=== PATIENT | male | born 1985 | race Caucasian/White ===

== ENCOUNTER 2019-01-27 15:33 | Emergency (ER) | payer MEDICARE ==
[2019-01-27] MEDS ORDERED: HYDROmorphone HCL 2 MG/ML SDV IVP ONE (17:05)
[2019-01-27] MEDS ORDERED: NS(*) 0.9% 1000 ML BAG 1,000 ML IV ONE (17:05)
[2019-01-27] MEDS ORDERED: ORPHENADRINE 60MG/2ML INJ IVP ONE (17:05)
--- NOTE | 2019-01-27 17:10 | ER Report ---
History and Physical Time Seen By MD: 17:05 Hx. of Stated Complaint: pain from back radiating into legs (SAY MÉNDEZ DO) HPI/ROS CHIEF COMPLAINT: low back pain radiating down b/l legs HISTORY OF PRESENT ILLNESS: Pt here for evaluation of low back pain radiating down b/l legs. Pt is from [place]. Pt had left hip replaced a month ago for avascular necrosis. PT is here visiting. Pt was panning for gold and noted a gradual onset of the radiating back pain, which he now rates as a constant 11/10. Denies trauma or any triggering event. Reports history of bulging discs noted on MRI 5 years ago. Denies loss of bowel or bladder incontinence. Reports nausea, vomiting and diarrhea for the last two days. Last episode of diarrhea was before being roomed in the emergency department. No abd pain. The surgical site on the left hip was healing well until a day ago when he noticed increased redness and serosanguineous discharge. REVIEW OF SYSTEMS: Constitutional: feels feverish with chills. Eyes: No discharge. ENT: No sore throat. Cardiovascular: No chest pain, no palpitations. Respiratory: No cough, no shortness of breath. Gastrointestinal: No abdominal pain, + nausea,vomiting and diarrhea Genitourinary: No hematuria. Musculoskeletal: as in HPI Skin: as in HPI Neurological: No headache. (SAY MÉNDEZ DO) Allergies: Coded Allergies: acyclovir (Verified Allergy, Intermediate, nguyen's palsy, 01/27/19) Home Meds Active Scripts Amoxicillin/Pot Clav 875-125 Mg Tab (AUGMENTIN 875-125 TABLET) 1 Each Tablet, 1 TAB PO Q12H for infection, #14 TAB Prov:RAIN LEE DO 01/27/19 Methocarbamol (ROBAXIN-750) 750 Mg Tablet, 1 TAB PO TID PRN for muscle spasm relief, #20 Prov:RAIN LEE DO 01/27/19 Oxycodone Hcl/Acetaminophen (PERCOCET 5-325 MG TABLET) 1 Each Tablet, 1 EACH PO Q4-6H PRN for PAIN, #15 Prov:RAIN LEE DO 01/27/19 Past Medical/Surgical History Pmhx: avascular necrosis b/l hips, bulging discs, anxiety, tachycardia Pshx: appy, left hip (SAY MÉNDEZ DO) Reviewed Nurses Notes: Yes Old Medical Records Reviewed: No (never been to [facility]) (SAY MÉNDEZ DO) Hx Alcohol Use: Yes (SAY MÉNDEZ DO) Constitutional Vital Sign - Last 24 Hours 01/27/19 01/27/19 01/27/19 01/27/19 16:24 16:30 16:34 17:00 Temp 98.5 Pulse 128 123 123 Resp 8 16 28 B/P (MAP) 141/97 (112) 141/97 153/99 (117) Pulse Ox 94 95 89 O2 Delivery Room Air 01/27/19 01/27/19 01/27/19 01/27/19 17:30 18:00 18:57 19:00 Pulse 125 117 116 Resp 19 20 28 B/P (MAP) 139/102 (114) 126/82 (97) 126/89 (101) 91/78 (82) Pulse Ox 89 95 94 01/27/19 01/27/19 01/27/19 01/27/19 20:00 20:30 20:56 21:00 Pulse ??? 121 119 B/P (MAP) 133/94 (107) 135/92 (106) 112/96 (101) Pulse Ox 91 91 Intake and Output 01/27/19 01/27/19 01/28/19 15:03 23:03 07:03 Intake Total 1000 ml Balance 1000 ml (RAIN LEE DO) Physical Exam General Appearance: The patient is alert, has no immediate need for airway protection and no signs of toxicity. Appears uncomfortable, moves slowly due to severe pain. Eyes: Pupils equal and round no pallor or injection. ENT, Mouth: Mucous membranes are moist. Respiratory: There are no retractions, lungs are clear to auscultation. Cardiovascular: Tachycardic with regular rhythm, no murmurs, clicks or rubs. Gastrointestinal: Abdomen is soft and non tender, no masses, bowel sounds normal. Neurological: Alert and oriented, sensation to light touch intact and muscle strength is symmetric in all extremities, DTRs +2/4 at patellar tendons b/l Skin: Approximately 5 cm surgical scar with 6 mm opening with serosanguineous discharge and surrounding erythema Musculoskeletal: tender to palpation down almost entire spine, worse in lumbar and flank regions. Noted ropiness or paraspinal muscles in lumbar region, left side> right. Decreased range of motion in spine and lower extremities b/l due to severe pain. DIFFERENTIAL DIAGNOSIS: After history and physical exam differential diagnosis was considered for lumbar radiculopathy secondary to disc herniation or muscle spasm,; spondylolysis, lumbar strain, cellulitis at surgical site, post op infection, gastroenteritis. (HONEY,SAY Martinez DO) Medical Decision Making Data Points Result Diagram: 01/27/19 1713 01/27/19 1713 Laboratory Hematology Test 01/27/19 17:13 White Blood Count 7.7 k/uL (4.5-11.0) Red Blood Count 4.78 M/uL (4.00-5.60) Hemoglobin 14.7 g/dL (14.0-18.0) Hematocrit 42.2 % (42.0-52.0) Mean Corpuscular Volume 88.2 fL (80.0-96.0) Mean Corpuscular Hemoglobin 30.8 pg (26.0-33.0) Mean Corpuscular Hemoglobin Concent 34.9 g/dL (32.0-36.0) Red Cell Distribution Width 13.3 % (11.5-14.5) Platelet Count 250 K/uL (150-450) Mean Platelet Volume 8.2 fL (7.2-11.1) Neutrophils (%) (Auto) 64.2 % (39.4-72.5) Lymphocytes (%) (Auto) 19.9 % (17.6-49.6) Monocytes (%) (Auto) 15.1 % (4.1-12.4) H Eosinophils (%) (Auto) 0.1 % (0.4-6.7) L Basophils (%) (Auto) 0.7 % (0.3-1.4) Nucleated RBC Relative Count (auto) 0.0 /100WBC Neutrophils # (Auto) 5.0 K/uL (2.0-7.4) Lymphocytes # (Auto) 1.5 K/uL (1.3-3.6) Monocytes # (Auto) 1.2 K/uL (0.3-1.0) H Eosinophils # (Auto) 0.0 K/uL (0.0-0.5) Basophils # (Auto) 0.1 K/uL (0.0-0.1) Nucleated RBC Absolute Count (auto) 0.00 K/uL Erythrocyte Sedimentation Rate 32 mm/HOUR (0-15) H Chemistry Test 01/27/19 17:13 01/27/19 18:11 Sodium Level 134 mmol/L (137-145) Potassium Level 3.9 mmol/L (3.5-5.0) Chloride Level 97 mmol/L (98-107) Carbon Dioxide Level 23 mmol/L (22-30) Blood Urea Nitrogen 13 mg/dl (9-21) Creatinine 1.10 mg/dl (0.66-1.25) Glomerular Filtration Rate Calc > 60.0 Random Glucose 107 mg/dl (75-110) Calcium Level 9.0 mg/dl (8.4-10.2) C-Reactive Protein 18.9 mg/dl (<1.0) Lactate 1.0 mmol/L (0.7-2.1) (RAIN LEE DO) Microbiology Microbiology Date/Time Source Procedure Growth Status 01/27/19 17:17 Blood Blood Culture - Preliminary NO GROWTH AFTER 1 DAY, REINCUBATED Resulted 01/27/19 17:13 Blood Blood Culture - Preliminary NO GROWTH AFTER 1 DAY, REINCUBATED Resulted 01/27/19 17:00 Hip Left Gram Stain - Final Resulted 01/27/19 17:00 Wound Culture - Preliminary Staphylococcus, Coagulase Pos Resulted (RAIN LEE DO) EKG/Imaging Imaging X-ray: Left hip 2 views was obtained. I viewed the images myself on the PACS system. My interpretation of the images is: No loosening of prosthetic parts., No subcutaneous air noted. The radiologist interpretation had no clinically significant variation from this interpretation. X-ray: L spine 3 views was obtained. I viewed the images myself on the PACS system. My interpretation of the images is: Normal-appearing lumbar spine without malalignment or degenerative disc disease. The radiologist interpreta tion had no clinically significant variation from this interpretation. Results: MRI of the lumbar spine without contrast was obtained. The results of the study are MRI lumbar spine without IV contrast HISTORY: Severe low back pain radiating down both legs, history of disc disease COMPARISON: None. TECHNIQUE: Multi-planar, multi-sequence lumbar spine MRI was performed without intravenous contrast administration. FINDINGS: Alignment: Normal. Vertebral marrow signal: Negative. Distal thoracic cord: Negative. Conus: negative, terminates at L1 Cauda equina: Negative. Paravertebral soft tissues: Negative. Visualized abdominal and pelvic structures: Negative. Disc Spaces: Lower thoracic spine: Normal. L1-2: Normal. L2-3: Normal. L3-4: Normal. L4-5: Minimal disc bulge without significant spinal canal or foraminal stenosis. L5-S1: Minimal disc bulge without spinal canal or foraminal stenosis. The right lateral recess is mildly narrowed. IMPRESSION: Minimal degenerative changes of the lower lumbar spine without evidence of neural compromise. The study was read by the radiologist. I viewed the images myself on the PACS system. (RAIN LEE DO) ED Course/Re-evaluation ED Course Checking basic labs and x-ray of hip Signed out to Dr. Lee (SAY MÉNDEZ DO) ED Course Care was accepted at shift change from Dr. Novoa. Patient with possible cellulitis of his incision on his left hip since he's been camping and panning for goal. He likely got the area wet. The wound appears to be dehisced in a 4- 5 mm central area of the incision of his lateral hip. Patient's evaluation for sepsis and infection is negative. He has a normal lactate, a normal white cou nt, no left shift. His CRP and sedimentation rate are both elevated but patient's been having diarrhea for several days. Plain x-rays are unremarkable. An MRI will be performed of his lumbar spine to rule out acute disc herniation. The MRI was unremarkable for any evidence of disease of the lumbar spine. He had 2 minor disc bulges, which were insignificant. Patient with severe back pain. I suspect he has a severe lumbar strain for panning for goal. My major concern is that his wound from his hip replacement 4 weeks ago. Left hip incision appears infected. I do not think infection is deep into the pelvis or his hardware. He'll be covered with Augmentin. He is advised to discontinue his camping trip in [facility] back home to [place] to see his doctor. Decision to Disposition Date: Jan 27, 2019 Decision to Disposition Time: 21:02 (RAIN LEE DO) Depart Departure Latest Vital Signs Vital Signs Date Time Temp Pulse Resp B/P (MAP) Pulse Ox O2 Delivery O2 Flow Rate FiO2 01/27/19 21:00 119 112/96 (101) 91 01/27/19 19:00 28 8/8/19 16:34 98.5 Room Air (RAIN LEE DO) Impression: Primary Impression: External incisional dehiscence Additional Impressions: Cellulitis Back pain Condition: Improved Disposition: HOME OR SELF-CARE New Scripts Amoxicillin/Pot Clav 875-125 Mg Tab (AUGMENTIN 875-125 TABLET) 1 Each Tablet 1 TAB PO Q12H for infection, #14 TAB Prov: RAIN LEE Nori PAEZ 01/27/19 Methocarbamol (ROBAXIN-750) 750 Mg Tablet 1 TAB PO TID PRN for muscle spasm relief, #20 Prov: RAIN LEE DO 01/27/19 Oxycodone Hcl/Acetaminophen (PERCOCET 5-325 MG TABLET) 1 Each Tablet 1 EACH PO Q4-6H PRN for PAIN, #15 Prov: RAIN LEE DO 01/27/19 Patient Instructions: Cellulitis (ED), Low Back Strain (ED) Additional Instructions: Take antibiotic, Augmentin 875 mg twice daily until gone Return home to [place] and see your surgeon as soon as possible Problem Qualifiers Primary Impression: External incisional dehiscence Encounter type: initial encounter Qualified Codes: T81.31XA - Disruption of external operation (surgical) wound, not elsewhere classified, initial encounter Additional Impressions: Cellulitis Site of cellulitis: extremity Site of cellulitis of extremity: lower extremity Laterality: left Qualified Codes: L03.116 - Cellulitis of left lower limb Back pain Back pain location: low back pain Chronicity: acute Back pain laterality: bilateral Sciatica presence: with sciatica Sciatica laterality: bilateral sciatica Qualified Codes: M54.42 - Lumbago with sciatica, left side; M54.41 - Lumbago with sciatica, right side SAY MÉNDEZ V DO Jan 27, 2019 17:10 [place] DO Jan 27, 2019 20:02
[2019-01-27 17:35] LABS: PLATELET COUNT, AUTOMATED 250 K/uL (150-450)
[2019-01-27] MEDS ORDERED: HYDROMORPHONE HCL 1 MG/ML SYRINGE IVP ONE ×2 (18:45→20:45)
--- NOTE | 2019-01-27 19:03 | RADIOLOGY IMAGING REPORT ---
FACILITY: [facility] - [place] PATIENT NAME: Jonathan Ricks : 1985 MR: [id number] V: [id number] EXAM DATE: ORDERING PHYSICIAN: SAY MÉNDEZ TECHNOLOGIST: Location: [facility] [place] Patient: Jonathan Ricks : 1985 Visit/Account:[id number] Date of Sevice: 01/27/2019 EXAMINATION: AP pelvis with lateral view of the left hip HISTORY: Pain, post surgery COMPARISON: None. FINDINGS: Surgical changes of left total hip arthroplasty. The acetabular and femoral components appear well se ated and demonstrate normal alignment. No evidence of periprosthetic fracture. Remainder of the bony pelvis appears radiographically intact. Osteopenia. Advanced chronic degenerati ve changes at the right hip with superior joint space narrowing and osteophyte formation. IMPRESSION: Left SIOMARA with normal alignment. No acute osseous findings. Report Dictated By: Maxi Dallas MD at 01/27/2019 6:55 PM Report E-Signed By: Maxi Dallas MD at 01/27/2019 6:56 PM WSN:[id number]
--- NOTE | 2019-01-27 19:05 | RADIOLOGY IMAGING REPORT ---
FACILITY: [facility] - [place] PATIENT NAME: Jonathan Ricks : 1985 MR: [id number] V: [id number] EXAM DATE: ORDERING PHYSICIAN: SAY MÉNDEZ TECHNOLOGIST: Location: [facility] Patient: Jonathan Ricks : 1985 Visit/Account:[id number] Date of Sevice: 01/27/2019 EXAMINATION: Lumbar Spine 3 views HISTORY: Pain radiating down legs. COMPARISON: None. FINDINGS: There are 5 lumbar-type vertebral segments. No radiographic evidence of acute fracture or subluxation in the lumbar spine. Normal alignment. Vertebral body height and disc spaces are preserved. IMPRESSION: Unremarkable lumbar spine series. Report Dictated By: Maxi Dallas MD at 01/27/2019 6:56 PM Report E-Signed By: Maxi Dallas MD at 01/27/2019 6:57 PM WSN:[id number]
--- NOTE | 2019-01-27 20:52 | RADIOLOGY IMAGING REPORT ---
FACILITY: [facility] PATIENT NAME: Jonathan Ricks : 1985 MR: [id number] V: [id number] EXAM DATE: ORDERING PHYSICIAN: RAIN COX TECHNOLOGIST: Location: [facility] [place] Patient: Jonathan Ricks : 1985 Visit/Account:[id number] Date of Sevice: 01/27/2019 EXAMINATION: MRI lumbar spine without IV contrast HISTORY: Severe low back pain radiating down both legs, history of disc disease COMPARISON: None. TECHNIQUE: Multi-planar, multi-sequence lumbar spine MRI was performed without intravenous contrast administration. FINDINGS: Alignment: Normal. Vertebral marrow signal: Negative. Distal thoracic cord: Negative. Conus: negative, terminates at L1 Cauda equina: Negative. Paravertebral soft tissues: Negative. Visualized abdominal and pelvic structures: Negative. Disc Spaces: Lower thoracic spine: Normal. L1-2: Normal. L2-3: Normal. L3-4: Normal. L4-5: Minimal disc bulge without significant spinal canal or foraminal stenosis. L5-S1: Minimal disc bulge without spinal canal or foraminal stenosis. The right lateral recess is mi ldly narrowed. IMPRESSION: Minimal degenerative changes of the lower lumbar spine without evidence of neural compro mise. Report Dictated By: RUDDY LEDESMA at 01/27/2019 8:39 PM Report E-Signed By: RUDDY LEDESMA at 01/27/2019 8:44 PM WSN:[email or web address]
[2019-01-27 21:00] VITALS: BP 112/96
[2019-01-27] MEDS ORDERED: AMOX/CLAV 875 MG TAB PO ONE (21:05)
[2019-01-27] MEDS ORDERED: oxyCODONE/ACETAMIN 5/325MG TH 2 TAB/BOTTLE PO ONE (21:05)
[2019-01-27] MEDS ORDERED: METHOCARBAMOL 500 MG TAB PO ONE (21:05)
[2019-01-27] MEDS ORDERED: METH-543 PO (21:09)
[2019-01-27] MEDS ORDERED: OXYC-865 PO (21:09)
[2019-01-27] MEDS ORDERED: AMOX-559 PO (21:09)
== END 2019-01-27 21:35 | disposition home or self-care (01) ==
LOC: ER 16:24
DX: T81.31XA Disruption of external operation (surgical) wound, not elsewhere classified, initial encounter (principal); L03.116 Cellulitis of left lower limb; M54.42 Lumbago with sciatica, left side; M54.41 Lumbago with sciatica, right side; Z96.642 Presence of left artificial hip joint
CPT/HCPCS: 36415; 72100; 72148; 73502; 83605; 85025; 85651; 86140; 87040; 87070; 87077; 87186; 87205; 96361; 96374; 96375; 96376; 99284; A9270; J1170; J2360; J7030; 82310; 82374; 82435; 82565; 82947; 84132; 84295; 84520